=== PATIENT | female | born 1980 | race Caucasian/White ===

== ENCOUNTER 2023-05-28 10:46 | Outpatient (CLI) | payer OTHER, SELFPAY ==
--- NOTE | 2023-05-28 11:00 | CRLHL7_ITS ---
For Patients: As a result of the Century Cures Act, medical imaging exams and procedure reports are released immediately into your electronic medical record. You may view this report before your referring provider. If you have questions, please contact your health care provider. CLINICAL HISTORY: IUD, AUB TECHNIQUE: Real time, villa scale images were acquired of the pelvis using a transabdominal and transvaginal approach. Color Doppler analysis was performed of the ovaries. FINDINGS: The uterus measures 8.8 x 4.3 x 4.1 centimeters endometrium measures 9 millimeters. IUD appears low in position located in the lower uterine segment. The right ovary measures 2.4 x 1.5 x 2.1 centimeters left ovary measures 3.2 x 1.4 x 1.4 centimeters both ovaries are unremarkable. No free fluid is seen. IMPRESSION: 1. 9 millimeter endometrial stripe. 2. IUD is low in position located in the lower uterine segment. Dictated by Rachael Baez MD @ 05/30/2023 6:53:39 PM (Electronically Signed)
== END 2023-05-28 10:47 | disposition home or self-care (01) ==
LOC: US 10:48
PROVIDERS: PCP Obstetrics & Gynecology; Visit Provider Obstetrics & Gynecology
DX: Z30.431 Encounter for routine checking of intrauterine contraceptive device (principal)
CPT/HCPCS: 76830; 76856

== ENCOUNTER 2024-08-19 15:43 | Outpatient (CLI) | payer OTHER, SELFPAY ==
[2024-08-22 04:35] LABS: HPV Source Cervix; HPV, High Risk by TMA Not Detected
== END 2024-08-19 15:44 | disposition home or self-care (01) ==
PROVIDERS: Visit Provider Obstetrics & Gynecology
DX: Z12.4 Encounter for screening for malignant neoplasm of cervix (principal)
CPT/HCPCS: 87624; 87625; 88141; 88142

== ENCOUNTER 2024-10-03 12:22 | Outpatient (CLI) | payer OTHER, SELFPAY ==
--- NOTE | 2024-10-03 13:20 | CRLHL7_ITS ---
For Patients: As a result of the Century Cures Act, medical imaging exams and procedure reports are released immediately into your electronic medical record. You may view this report before your referring provider. If you have questions, please contact your health care provider. INDICATION: BILATERAL SCREENING MAMMOGRAM, ASYMPTOMATIC 44 Y/O FEMALE COMPARISON: 04/26/2020 TECHNIQUE: Digital mammogram in CC and MLO projections including computer-aided detection (CAD) and tomosynthesis. BREAST COMPOSITION: There are scattered areas of fibroglandular density. FINDINGS: No suspicious findings. ASSESSMENT: BI-RADS 1 Negative RECOMMENDATION: Annual screening mammogram. A lay language report of this examination will be provided to the patient. Dictated by: Hansel Sánchez MD @ 10/06/2024 08:58:32 (Electronically Signed)
== END 2024-10-03 12:23 | disposition home or self-care (01) ==
LOC: MAMMO 12:23
PROVIDERS: Visit Provider Obstetrics & Gynecology
DX: Z12.31 Encounter for screening mammogram for malignant neoplasm of breast (principal)
CPT/HCPCS: 77063; 77067

== ENCOUNTER 2025-05-04 08:32 | Outpatient (CLI) | payer OTHER, SELFPAY ==
--- NOTE | 2025-05-04 10:22 | P.ANES_ITS ---
Anesthesia Charges Start Date/Time Anesthesia Start Date: 05/04/25 Anesthesia Start Time: 09:52 Stop Date/Time Anesthesia Stop Date: 05/04/25 Anesthesia Stop Time: 10:18 Coding CPT Codes CPT Codes: ANES LWR INTST NDSC NOS - [id number] ([id number]) P3 - PATIENT W/SEVERE SYS DISEASE, QX - DENTAL COORDINATOR SVC W/ MD MED DIRECTION, QK - TOOL MAKER APPRENTICE 2-4 CNCRNT ANES PROC
--- NOTE | 2025-05-04 10:22 | W.ANESCHARGE ---
Anesthesia Charges Start Date/Time Anesthesia Start Date: 05/04/25 Anesthesia Start Time: 09:52 Stop Date/Time Anesthesia Stop Date: 05/04/25 Anesthesia Stop Time: 10:18 Coding CPT Codes CPT Codes: ANES LWR INTST NDSC NOS - [id number] ([id number]) P3 - PATIENT W/SEVERE SYS DISEASE, QX - BOX FEEDER SVC W/ MD MED DIRECTION, QK - ENVIRONMENTAL HEALTH SAFETY MANAGER 2-4 CNCRNT ANES PROC
--- NOTE | 2025-05-04 10:24 | P.ANES_ITS ---
Anesthesia Charges Start Date/Time Anesthesia Start Date: 05/04/25 Anesthesia Start Time: 09:52 Stop Date/Time Anesthesia Stop Date: 05/04/25 Anesthesia Stop Time: 10:18 Coding CPT Codes CPT Codes: ANES LWR INTST NDSC NOS - [id number] ([id number]) QK - CRAYON SORTING MACHINE FEEDER 2-4 CNCRNT ANES PROC, QX - SHOP ESTIMATOR SVC W/ MED DIRECTION, P3 - PATIENT W/SEVERE SYS DISEASE
--- NOTE | 2025-05-04 10:24 | W.ANESCHARGE ---
Anesthesia Charges Start Date/Time Anesthesia Start Date: 05/04/25 Anesthesia Start Time: 09:52 Stop Date/Time Anesthesia Stop Date: 05/04/25 Anesthesia Stop Time: 10:18 Coding CPT Codes CPT Codes: ANES LWR INTST NDSC NOS - [id number] ([id number]) QK - DIRECTOR MBA 2-4 CNCRNT ANES PROC, QX - STUNTMAN SVC W/ MED DIRECTION, P3 - PATIENT W/SEVERE SYS DISEASE
== END 2025-05-04 08:33 | disposition home or self-care (01) ==
LOC: OP CLINIC 08:34
PROVIDERS: PCP Family Medicine; Visit Provider Surgery
DX: Z12.11 Encounter for screening for malignant neoplasm of colon (principal); D12.0 Benign neoplasm of cecum; Z83.719 Family history of colon polyps, unspecified
CPT/HCPCS: 00811; 00812; 45385; J2704